=== PATIENT | female | born 1990 | race Caucasian/White ===

== ENCOUNTER → 2017-07-22 | Outpatient (CLI) | payer MEDICAID | LOC: HPND 09:43 | PROVIDERS: ATTEND Obstetrics & Gynecology | DX: O35.1XX0 Maternal care for (suspected) chromosomal abnormality in fetus, not applicable or unspecified (principal); O99.322 Drug use complicating pregnancy, second trimester; O98.512 Other viral diseases complicating pregnancy, second trimester | CPT/HCPCS: 36415; 76811 ==